=== PATIENT | male | born 1965 | race African-American/Black ===

== ENCOUNTER 2017-05-25 11:19 | Emergency (ER) | payer MEDICAID ==
[~2017-05-25] VITALS: Ht 167.6 cm; Wt 67.1 kg
[2017-05-25] MEDS ORDERED: AMOXICILLIN500 MG ORAL (12:43)
[2017-05-25] MEDS ORDERED: PROMETHAZINE-C118 M1 ORAL (12:43)
[2017-05-25 13:00] VITALS: BP 103/72
--- NOTE | 2017-05-25 15:33 | Diagnostic Imaging Report ---
Indication: Cough Technique: One view of the chest Comparison: none Findings: Lungs and pleural spaces are clear. Heart size is normal Impression: No acute process
--- NOTE | 2017-05-28 14:35 | Emergency Room Report ---
History of Present Illness General Chief Complaint: General Complaint Source: Patient, Medical Record Present Illness HPI 52-year-old male presents ED for evaluation. Complaining of cough times one week. Cough is productive with yellowish phlegm. Afebrile in triage. Patient has history of AIDS. States he is compliant with his medications. Denies chest pain. Denies sick contacts or recent travel. No other aggravating relieving factors. Denies any other associated symptoms Allergies: Coded Allergies: No Known Allergies (Unverified , 05/25/17) Patient History Past Medical History: none Past Surgical History: none Pertinent Family History: none Social History: Denies: smoking, alcohol use, drug use Immunizations: UTD Reviewed Nursing Documentation: PMH: Agreed, PSxH: Agreed Nursing Documentation-PMH Past Medical History: No History, Except For Review of Systems All Other Systems: negative except mentioned in HPI Physical Exam Vital Signs Date Time Temp Pulse Resp B/P (MAP) Pulse Ox O2 Delivery O2 Flow Rate FiO2 05/25/17 11:25 97.1 84 18 103/72 100 Room Air 97.2 Sp02 EP Interpretation: reviewed, normal General Appearance: no apparent distress, alert, GCS 15, non-toxic Head: normocephalic, atraumatic Eyes: bilateral eye normal inspection, bilateral eye PERRL ENT: hearing grossly normal, normal pharynx, no angioedema, normal voice Neck: full range of motion, supple/symm/no masses Respiratory: chest non-tender, lungs clear, normal breath sounds, speaking full sentences Cardiovascular #1: regular rate, rhythm, no edema Cardiovascular #2: 2+ carotid (R), 2+ carotid (L), 2+ radial (R), 2+ radial (L) , 2+ dorsalis pedis (R), 2+ dorsalis pedis (L) Gastrointestinal: normal bowel sounds, non tender, soft, non-distended, no guarding, no rebound Rectal: deferred Genitourinary: normal inspection, no CVA tenderness Musculoskeletal: back normal, gait/station normal, normal range of motion, non- tender Neurologic: alert, oriented x3, responsive, motor strength/tone normal, sensory intact, speech normal Psychiatric: judgement/insight normal, memory normal, mood/affect normal, no suicidal/homicidal ideation Reflexes: 3+ bicep (R), 3+ bicep (L), 3+ tricep (R), 3+ tricep (L), 3+ knee (R) , 3+ knee (L) Skin: normal color, no rash, warm/dry, well hydrated Lymphatic: no adenopathy Medical Decision Making Diagnostic Impression: Primary Impression: Atypical pneumonia ER Course Hospital Course 52-year-old male presents ED complaining of bodyaches and cough x 1 week Differential diagnoses include: URI, pharyngitis, otitis media, asthma Clinical course Patient placed on stretcher. After initial history, physical exam reveals a female in no acute distress. Bilateral TM unremarkable. No pharyngeal erythema. No tonsillar exudates. No lymphadenopathy. lungs clear. abdomen soft. CXR shows no acute infiltrates Presentation consistent with atypical pneumonia. Given presentation and patient 's history of AIDS I willl prescribe Abx Diagnosis - atypical pneumonia Stable and discharged home with Rx Amoxicillin, promethazine/codeine. Instructed to followup with PMD. Return to ED if symptoms recur or worsen Chest X-Ray Diagnostic Results Chest X-Ray Diagnostic Results : Chest X-Ray Ordered: Yes # of Views/Limited/Complete: 1 View Indication: Other - cough EP Interpretation: Yes Interpretation: no consolidation, no effusion, no pneumothorax, no acute cardiopulmonary disease Impression: No acute disease Electronically Signed by: Electronically signed by Keith Perez MD Last Vital Signs Date Time Temp Pulse Resp B/P (MAP) Pulse Ox O2 Delivery O2 Flow Rate FiO2 05/25/17 13:00 207.0 80 18 103/72 100 Room Air Status: improved Disposition: HOME, SELF-CARE Condition: Stable Scripts Codeine/Promethazine Hcl* (PROMETHAZINE-CODEINE SYRUP*) 118 Ml Syrup 5 ML ORAL Q6H Y for For Cough, #118 ML 0 Refills Prov: KEITH PEREZ M.D. 05/25/17 Amoxicillin* (AMOXIL*) 500 Mg Capsule 500 MG ORAL THREE TIMES A DAY, #21 CAP Prov: KEITH PEREZ M.D. 05/25/17 Patient Instructions: Community-Acquired Pneumonia, Adult, [id number] KEITH PEREZ M.D. May 28, 2017 14:35
== END 2017-05-25 13:00 | disposition home or self-care (01) ==
LOC: EMR 11:40
DX: J18.9 Pneumonia, unspecified organism (principal)
CPT/HCPCS: 71045; 99283

== ENCOUNTER 2018-01-02 11:46 | Emergency (ER) | payer MEDICAID ==
[~2018-01-02] VITALS: Ht 170.2 cm; Wt 66.2 kg
[~2018-01-02 11:46] MED LIST: AMOXICILLIN500 MG ORAL; PROMETHAZINE-C118 M1 ORAL
[2018-01-02 12:21] VITALS: BP 115/73
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
[2018-01-02] MEDS ORDERED: Ketorolac 30mg Inj IM ONE (12:30)
[2018-01-02] MEDS ORDERED: ACETAMINOPHEN-1 EAC1 ORAL (13:06)
--- NOTE | 2018-01-02 13:08 | Diagnostic Imaging Report ---
Clinical Indication:Pain, trauma Technique: 3 views of the right wrist Comparison: None Findings: No acute fractures. No dislocations. Joint spaces are preserved. Impression: Negative
--- NOTE | 2018-01-02 13:11 | Diagnostic Imaging Report ---
Indication: Right hand pain, trauma Technique: 3 views left hand Comparison: Findings: There is a comminuted oblique fracture involving the base and shaft of the fourth distal phalanx. On the lateral view, there is widening of the articular surface, with posterior subluxation of the posterior articular surface. This extends into the articular surface. No other acute fractures. No dislocations. The joint spaces are preserved. Impression: Positive for fourth distal phalangeal fracture, as described. Findings discussed with MATTHEW Simpson in the emergency room at the time of interpretation
[2018-01-02 13:51] VITALS: BP 115/73
== END 2018-01-02 13:51 | disposition home or self-care (01) ==
LOC: EMR 12:20
DX: S62.633A Displaced fracture of distal phalanx of left middle finger, initial encounter for closed fracture (principal); S60.212A Contusion of left wrist, initial encounter; Y04.0XXA Assault by unarmed brawl or fight, initial encounter; Y93.89 Activity, other specified; Y92.524 Gas station as the place of occurrence of the external cause
CPT/HCPCS: 73110; 73130; 96372; 99284; J1885

== ENCOUNTER 2018-09-16 14:41 | Emergency (ER) | payer MEDICAID ==
[~2018-09-16] VITALS: Ht 167.6 cm; Wt 68.9 kg
[~2018-09-16 14:41] MED LIST changes: +ACETAMINOPHEN-1 EAC1 ORAL
[2018-09-16] MEDS ORDERED: TRIUMEQ 600-501 EACH PO (14:57)
--- NOTE | 2018-09-16 15:03 | NUR ---
ED Nurse Note: PT WALKED IN TO ER TODAY FROM HOME. AOX4. PT C/O RIGHT MEDIAL THIGH PAIN, 8/10 X 1 HOUR AGO AFTER CUTTING IT ON A NAIL WHEN HE SLIPPED OFF A LADDER. PT PRESENTS WITH TWO LOCALIZED LACERATIONS TO RIGHT MEDIAL THIGH. BOTH SITES NOT ACTIVELY BLEEDING. CIRCULATION AND SENSATION INTACT, CAP REFILL <3 SECONDS. FULL ROM OF EXTREMITY AND DIGITS. OF NOTE, PT STATES HE HAS HX OF HIV. VIRAL LOAD: 3
--- NOTE | 2018-09-16 15:05 | NUR ---
ED Nurse Note: PT STATES LAST TETANUS SHOT WAS LAST MONTH.
[2018-09-16 15:06] VITALS: BP 116/80
[2018-09-16] MEDS ORDERED: Lidocaine 2% 20mg/ml/EPI 0.01mg/ml 20ml INJ ONE (15:15)
--- NOTE | 2018-09-16 15:40 | NUR ---
ED Nurse Note: PT TO XRAY VIA SANDRINE.
--- NOTE | 2018-09-16 16:11 | NUR ---
ED Nurse Note: PT BACK FROM [facility]RET[facility] VIA SANDRINE.
--- NOTE | 2018-09-16 18:12 | Emergency Room Report ---
History of Present Illness General Chief Complaint: Laceration Source: Patient Present Illness HPI 53-year-old male with with status of HIV positive here with a laceration to right thigh x1 day. Patient reports that he was working with drills as he cut himself in the right thigh. Denies numbness and tingling. Rating the pain 10 out of 10 without radiation. Has not taken any medication for pain. Denies other injuries, is up-to-date with his tetanus shots, denies chest pain, shortness of breath, palpitation, abdominal pain, nausea vomiting and all other associated symptoms. Allergies: Coded Allergies: No Known Allergies (Unverified , 05/25/17) Patient History Past Medical History: see triage record Past Surgical History: unable to obtain Pertinent Family History: none Immunizations: UTD Reviewed Nursing Documentation: PMH: Agreed; PSxH: Agreed Nursing Documentation-PMH Past Medical History: No History, Except For Review of Systems All Other Systems: negative except mentioned in HPI Physical Exam Vital Signs Date Time Temp Pulse Resp B/P (MAP) Pulse Ox O2 Delivery O2 Flow Rate FiO2 09/16/18 14:52 97.9 56 17 111/78 (89) 99 Room Air Sp02 EP Interpretation: reviewed, normal General Appearance: normal inspection, well appearing, no apparent distress, alert, GCS 15 Head: normocephalic, atraumatic Eyes: bilateral eye normal inspection, bilateral eye PERRL ENT: normal ENT inspection, hearing grossly normal Neck: normal inspection, full range of motion, supple Respiratory: normal inspection, chest non-tender, lungs clear, no rhonchi, no wheezing Cardiovascular #1: normal inspection, regular rate, rhythm, no murmur, normal capillary refill Cardiovascular #2: 2+ dorsalis pedis (R), 2+ dorsalis pedis (L) Gastrointestinal: normal inspection, non tender, soft Rectal: deferred Musculoskeletal: other - Deep laceration to dermis of right thigh Neurologic: normal inspection, alert, oriented x3, responsive Psychiatric: normal inspection, judgement/insight normal, memory normal Skin: laceration - right thigh(deep into dermis) Lymphatic: normal inspection, no adenopathy Procedures Laceration/Wound Repair Laceration/Wound Repair : Consent: Verbal Wound Location: lower extremity Wound's Depth, Shape: into muscle Wound Explored: foreign body removed Betadine Prep?: Yes Anesthesia: Lidocaine w/ Epi Volume Anesthetic (ccs): 15 Wound Debrided: minimal Wound Repaired With: sutures Suture Size/Type: 3:0, proline Number of Sutures: 34 Layer Closure?: Yes Sterile Dressing Applied?: Yes Splint Applied?: No Sling Applied?: No Patient Tolerated: Well Complications: None Medical Decision Making PA Attestation All my diagnosis and treatment plans were reviewed ad discussed with my supervising physician Dr. Bernal Diagnostic Impression: Primary Impression: Laceration of right lower limb ER Course 53-year-old male with with status of HIV positive here with a laceration to right thigh x1 day. Patient reports that he was working with drills as he cut himself in the right thigh. Denies numbness and tingling. Rating the pain 10 out of 10 without radiation. Has not taken any medication for pain. Denies other injuries, is up-to-date with his tetanus shots, denies chest pain, shortness of breath, palpitation, abdominal pain, nausea vomiting and all other associated symptoms. Ddx considered but are not limited to : Superficial laceration, deep laceration , tendon involvement with laceration, laceration with foreign body Vital signs: are WNL, pt. is afebrile H&PE are most consistent with: Deep laceration into the muscle ORDERS: X-ray, laceration repair, wound clean and dressed, Bactrim DS, Keflex, Tylenol 3, naproxen ED INTERVENTIONS: Laceration repair, wound clean and dress DISCHARGE: At this time pt. is stable for d/c to home. Will provide printed patient care instructions, and any necessary prescriptions. Care plan and follow up instructions have been discussed with the patient prior to discharge. Patient to follow-up with a primary care provider in 24 to 48 hours for wound check take medication as directed due to positive HIV status patient is more prone to getting infection and needs referral to plastic surgeon I advised the patient that he may have numbness 4 weeks at the affected site as there is definitely some superficial nerve damage however if continues to be numb and radiation of numbness in the whole leg follow-up with your primary care provider for further assessment and referrals Other X-Ray Diagnostic Results Other X-Ray Diagnostic Results : X-Ray ordered: Right femur # of Views/Limited Vs Complete: 2 View Indication: Other - Foreign body suspected EP Interpretation: Yes MATTHEW Xray: Interpretation reviewed, by supervising MD, and agrees with findings. Interpretation: no dislocation, no soft tissue swelling, no fractures, other - No foreign body Impression: No acute disease Electronically Signed by: anastasiya carlin PA-C Last Vital Signs Date Time Temp Pulse Resp B/P (MAP) Pulse Ox O2 Delivery O2 Flow Rate FiO2 09/16/18 15:06 98.0 62 18 116/80 100 Room Air Disposition: HOME, SELF-CARE Condition: Stable Scripts Acetaminophen With Codeine (T#3) (TYLENOL #3 TAB*) Y Tab 1 TAB ORAL DAILY PRN for For Pain for 4 Days, #4 TAB Prov: Anastasiya Patel 09/16/18 Naproxen* (NAPROXEN*) 500 Mg Tablet 500 MG ORAL TWICE A DAY, #30 TAB Prov: Aanstasiya Patel 09/16/18 Cephalexin* (KEFLEX*) 500 Mg Capsule 500 MG ORAL EVERY 6 HOURS for 7 Days, #28 CAP Prov: Anastasiya Patel 09/16/18 Trimethoprim/Sulfamethoxazole (Bactrim Ds Tablet) 1 Each Tablet 1 TAB ORAL TWICE A DAY for 7 Days, #14 TAB Prov: Anastasiya Patel 09/16/18 Patient Instructions: Laceration Care, Adult Additional Instructions: Medication as directed follow-up with your primary care provider avoid getting the area of wet Anastasiya Patel Sep 16, 2018 18:12
[2018-09-16] MEDS ORDERED: BACTRIM-DS1 EA ORAL (18:14)
[2018-09-16] MEDS ORDERED: CEPHALEXIN500 MG ORAL (18:14)
[2018-09-16] MEDS ORDERED: ACETAMINOPHEN-1 EAC1 ORAL (18:14)
[2018-09-16] MEDS ORDERED: NAPROXEN500 M2 ORAL (18:14)
--- NOTE | 2018-09-16 18:28 | NUR ---
ED Nurse Note: PT LAYING PEACEFULLY IN BED IN NAD. AOX4. PRESCRIPTIONS AND DISCHARGE PAPERWORK EXPLAINED TO PT. PT VERBALIZES UNDERSTANDING AND ALL QUESTIONS ANSWERED. PRESCRIPTIONS AND DISCHARGE PAPERWORK GIVEN TO PT AND ID WRISTBAND REMOVED. PT WALKED OUT OF ER WITH STEADY GAIT AND ALL BELONGINGS.
[2018-09-16 18:29] VITALS: BP 118/76
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
== END 2018-09-16 18:28 | disposition home or self-care (01) ==
LOC: EMR 18:22
DX: S71.111A Laceration without foreign body, right thigh, initial encounter (principal); B20 Human immunodeficiency virus [HIV] disease; W26.9XXA Contact with unspecified sharp object(s), initial encounter; Y92.9 Unspecified place or not applicable; Y99.0 Civilian activity done for income or pay
CPT/HCPCS: 12031; 73552; 96374; 99283; Z7502

== ENCOUNTER 2018-10-02 11:08 | Emergency (ER) | payer MEDICAID ==
[~2018-10-02] VITALS: Ht 167.6 cm; Wt 62.6 kg
[~2018-10-02 11:08] MED LIST changes: +BACTRIM-DS1 EA ORAL; +CEPHALEXIN500 MG ORAL; +NAPROXEN500 M2 ORAL; +TRIUMEQ 600-501 EACH PO
--- NOTE | 2018-10-02 11:16 | NUR ---
ED Nurse Note: PT WALKED IN TO ER TODAY FROM HOME. AOX4. PT WAS SEEN 09/16/18 DUE TO LACERATION TO RIGHT LOWER EXTREMITY. SUTURES PLACED BY MATTHEW SHOEMAKER. PT STATES HE IS HERE TODAY FOR RECHECK OF WOUND FOR POSSIBLE SUTURE REMOVAL. SITE LOOKS CLEAN AND DRY. NO ACTIVE DRAINAGE, BLEEDING OR REDNESS NOTED.
[2018-10-02 11:17] VITALS: BP 108/72
--- NOTE | 2018-10-02 12:06 | Emergency Room Report ---
History of Present Illness General Chief Complaint: Wound Recheck/Suture Removal Source: Patient, Medical Record Present Illness HPI Patient suffered a laceration to his right anterior thigh about 10 days ago and has sutures in place. He presents for suture removal. He has no complaints. He has no pain. He has been applying aloe vera gel. Allergies: Coded Allergies: No Known Allergies (Unverified , 05/25/17) Patient History Past Medical History: see triage record, HIV Reviewed Nursing Documentation: PMH: Agreed; PSxH: Agreed Nursing Documentation-PMH Past Medical History: No History, Except For Review of Systems All Other Systems: negative except mentioned in HPI Physical Exam Vital Signs Date Time Temp Pulse Resp B/P (MAP) Pulse Ox O2 Delivery O2 Flow Rate FiO2 10/02/18 11:13 97.9 90 18 102/68 (79) 97 Room Air Sp02 EP Interpretation: reviewed, normal General Appearance: no apparent distress, alert, GCS 15, non-toxic Head: normocephalic, atraumatic Eyes: bilateral eye normal inspection ENT: hearing grossly normal, normal pharynx, no angioedema, normal voice Neck: normal inspection Respiratory: speaking full sentences Rectal: deferred Musculoskeletal: back normal, gait/station normal, normal range of motion, non- tender Neurologic: alert, oriented x3, responsive, motor strength/tone normal, sensory intact, speech normal Psychiatric: judgement/insight normal, memory normal, mood/affect normal, no suicidal/homicidal ideation Skin: other Medical Decision Making Diagnostic Impression: Primary Impression: Encounter for removal of sutures ER Course The sutures were removed from the healing wound. The sutures likely should have been removed previously and were embedded. However, the sutures were removed without complication or incident. There is no evidence of infection. The patient is instructed to follow-up closely with his primary care physician for further wound monitoring. He is given return precautions and follow-up instructions. Last Vital Signs Date Time Temp Pulse Resp B/P (MAP) Pulse Ox O2 Delivery O2 Flow Rate FiO2 10/02/18 11:17 98.1 86 17 108/72 99 Room Air Status: improved Disposition: HOME, SELF-CARE Condition: Improved Patient Instructions: Wound Check Rosemarie Contreras DO Oct 02, 2018 12:06
[2018-10-02 12:10] VITALS: BP 104/70
--- NOTE | 2018-10-02 12:10 | NUR ---
ED Nurse Note: PT LAYING PEACEFULLY IN BED IN NAD. AOX4. DISCHARGE PAPERWORK EXPLAINED TO PT. PT VERBALIZES UNDERSTANDING AND ALL QUESTIONS ANSWERED. DISCHARGE PAPERWORK GIVEN TO PT AND ID WRISTBAND REMOVED. PT WALKED OUT OF ER WITH STEADY GAIT AND ALL BELONGINGS.
== END 2018-10-02 12:10 | disposition home or self-care (01) ==
LOC: EMR 12:10
DX: S71.111A Laceration without foreign body, right thigh, initial encounter (principal); Z48.02 Encounter for removal of sutures; X58.XXXA Exposure to other specified factors, initial encounter; Y92.9 Unspecified place or not applicable; B20 Human immunodeficiency virus [HIV] disease
CPT/HCPCS: 99281

== ENCOUNTER 2020-02-22 12:21 | Emergency (ER) | payer MEDICAID ==
[~2020-02-22] VITALS: Ht 170.2 cm; Wt 73.5 kg
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
[2020-02-22] MEDS ORDERED: Cephalexin 500mg cap ORAL ONE (12:45)
[2020-02-22] MEDS ORDERED: CEPHALEXIN500 MG ORAL (13:20)
[2020-02-22] MEDS ORDERED: Bacitracin Oint UD TOPIC ONE (13:20)
[2020-02-22] MEDS ORDERED: BACITRACIN ZIN1 EACH TOPIC (13:20)
[2020-02-22] MEDS ORDERED: IBUPROFEN600 M1 ORAL (13:20)
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
--- NOTE | 2020-02-22 13:25 | NUR ---
ED Nurse Note: pt's R foot cleaned and dressed per ERMD insturction. pt placed in walking boot, tolerated well
--- NOTE | 2020-02-22 13:27 | NUR ---
ED Nurse Note: pt refusing tetanus at this time
[2020-02-22] MEDS ORDERED: Tetanus/Diptheria/Pertussis IM ONE (13:30)
--- NOTE | 2020-02-22 13:30 | NUR ---
ER DISCHARGE NOTE: Patient is cleared to be discharged per ERMD, pt is aox4, on room air, with stable vital signs. pt was given dc and prescription instructions, pt was able to verbalize understanding, pt id band removed without complications. pt is able to ambulate with steady gait. pt took all belongings.
--- NOTE | 2020-02-22 13:56 | Diagnostic Imaging Report ---
EXAM: XR Right Toes, 2 or More Views CLINICAL HISTORY: PAIN TECHNIQUE: Frontal, lateral and oblique views of the toes of the right foot. COMPARISON: None FINDINGS: Bones/joints: No displaced fracture or dislocation identified. Mild degenerative changes of the right first MTP joint. Osteopenia. Soft tissues: Unremarkable. No radiopaque foreign body. IMPRESSION: No displaced fracture or dislocation identified.
== END 2020-02-22 13:33 | disposition home or self-care (01) ==
LOC: EMR 12:46
DX: S90.811A Abrasion, right foot, initial encounter (principal); L08.9 Local infection of the skin and subcutaneous tissue, unspecified; X58.XXXA Exposure to other specified factors, initial encounter; Y92.9 Unspecified place or not applicable
CPT/HCPCS: 73660; Z7502; 99283